=== PATIENT | male | born 1950 | race Caucasian/White ===

== ENCOUNTER 2017-04-13 07:26 | Day surgery (SDC) | payer BC ==
[2017-04-13] MEDS ORDERED: Dextrose 5%-Lactated Ringers 1,000 ML IV SCH (08:00)
[2017-04-13] MEDS ORDERED: Glycopyrrolate 0.2 MG/ML 2 ML SYRINGE IVPUSH ONE (09:00)
[2017-04-13] MEDS ORDERED: Propofol 200 MG/20 ML SDV ONE (10:15)
[2017-04-13] MEDS ORDERED: fentaNYL 100 MCG/2 ML SDV ONE (10:15)
[2017-04-13] MEDS ORDERED: Midazolam 1 MG/ML 2 ML SDV ONE (10:15)
[2017-04-13 11:41] VITALS: BP 150/84
--- NOTE | 2017-04-16 13:20 | OR ---
DATE OF PROCEDURE: 04/13/2017 PREOPERATIVE DIAGNOSIS: Probable gastroesophageal reflux disease. POSTOPERATIVE DIAGNOSES: 1. 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 2. Patchy antral gastritis and duodenitis. OPERATIVE PROCEDURES: 1. Esophagogastroduodenoscopy with:. a. Biopsies of antrum for CLOtest. b. Biopsies of esophagogastric junction for histologic evaluation. ANESTHESIA: IV sedation. INDICATION FOR PROCEDURE: A 66-year-old male presenting with some ongoing chest pain as well as some bilious regurgitation. He had a recent cardiac catheterization, which was normal, and the patient was felt at this time to most likely be having reflux-related discomfort. He in the past had been on Prilosec and did fine, and the symptoms improved at that time. He was started on Prilosec just yesterday, once again. The plan is to proceed with an upper GI endoscopy with biopsies and/or dilation as indicated. Potential risks including bleeding and perforation were discussed, and the patient wishes to proceed. DETAILS OF PROCEDURE: The patient was taken to the operating room and placed in a left lateral decubitus position. IV sedation was administered, after which the upper GI endoscope was passed orally through the length of the esophagus into the stomach with retroflexion view of the fundus, thereafter through the pyloric channel, and into the junction of the third and fourth portions of the duodenum. Findings include a normal hypopharynx, larynx, upper esophageal sphincter, and esophageal body. At the EG junction, there was a small hiatal hernia present. There were 3 upward extensions of the gastroesophageal junction mucosal line, all of which were acutely inflamed. One of these had a small area of ulceration at its tip. There were also some tiny islands of columnar-type mucosa slightly just above the main esophagogastric junction mucosal line as well. 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 No stricturing or plaquing or gross evidence of neoplasia was seen. Within the stomach, retroflexion revealed the small hiatal hernia. The remainder of the stomach had some patchy red spots in the antrum, these continued into the duodenal wall, after which the duodenal findings then normalized. At this point, biopsies were obtained from the antrum and sent for CLOtest for H. pylori. Multiple biopsies were obtained from esophagogastric junction and sent for histologic evaluation. Minimal bleeding from the biopsy sites was seen, and the procedure then concluded. The patient was taken to the recovery room in a satisfactory condition. The plan will be to have the patient continue the omeprazole 20 mg a day, as this regularly has been somewhat efficacious in the past. We will see the patient back on 04/25/2017, to see how we are doing with medical management. Elliott Zapata MD /[id number]
== END 2017-04-13 11:45 | disposition home or self-care (01) ==
LOC: JP.SDS 07:26
PROVIDERS: ATTEND Surgery
DX: K31.89 Other diseases of stomach and duodenum (principal); K44.9 Diaphragmatic hernia without obstruction or gangrene; I25.10 Atherosclerotic heart disease of native coronary artery without angina pectoris; K21.9 Gastro-esophageal reflux disease without esophagitis; E66.9 Obesity, unspecified; Z88.8 Allergy status to other drugs, medicaments and biological substances
CPT/HCPCS: 43239; 87081; J2250; J2704; J3010; J7042; 88305

== ENCOUNTER 2017-09-13 06:28 | Day surgery (SDC) | payer BC, MEDICARE ==
[2017-09-13] MEDS ORDERED: Sodium Tetradecyl Sulfate 1% 20 MG/2 ML SDV ONE (06:53)
[2017-09-13] MEDS ORDERED: Lidocaine 1% with EPINEPHrine 1:100,000 50 ML MDV ONE (06:53)
[2017-09-13] MEDS ORDERED: Sodium Chloride 0.9% 10 ML ONE (06:53)
[2017-09-13] MEDS ORDERED: Sodium Chloride 0.9% 1,000 ML IV SCH (07:00)
[2017-09-13] MEDS ORDERED: Lidocaine 1% w/EPINEPHrine 50 ML, Sodium Bicarbonate 5 MEQ in Sodium Chloride 0.9% 950 ML INJECT ONE (07:30)
[2017-09-13] MEDS ORDERED: Midazolam 1 MG/ML 2 ML SDV ONE (07:33)
[2017-09-13] MEDS ORDERED: fentaNYL 250 MCG/5 ML SDV ONE (07:33)
[2017-09-13] MEDS ORDERED: Propofol 200 MG/20 ML SDV ONE (07:33)
--- NOTE | 2017-09-13 10:14 | OR ---
DATE OF PROCEDURE: 09/13/2017 PROCEDURE: 1. Radiofrequency ablation of left greater saphenous vein. 2. Sclerotherapy left leg, multiple. 3. Compression wrapping, left leg ([id number]). PREOPERATIVE DIAGNOSIS: Venous/varicose vein insufficiency with inflammation and pain. POSTOPERATIVE DIAGNOSIS: Venous/varicose vein insufficiency with inflammation and pain. RISKS: Risks, benefits, alternatives, limitations including, but not limited to infection, bleeding, ulceration, and DVT formation were explained to the patient who wished to proceed. PROCEDURE IN DETAIL: The patient was placed in supine position. The left GSV was accessed at the level between the calf and ankle. This was accessed using a 21-gauge needle exchanged for a 35,000th wire, then exchanged for a 7-Belizean sheath. Tumescent fluid of lidocaine with epinephrine was used to anesthetize the area prior to incision with an 11 blade. The sheath was introduced and the RFA probe was advanced to approximately 5 cm from the deep junction. Due to the tortuosity, this was not able to be advanced any further. Tumescent fluid was used in a 1 cm jacket around this and then verified a second and third time. The RFA probe was deployed x2, proximally and distally and x1 in all other segments. Direct even pressure was performed during this maneuver. Sheath and devices were then removed. Direct pressure was held for 7 minutes. Dermabond was applied. Sclerotherapy was then performed on the left leg. There were 5 on the left, ranging in from 1-3 cm. 0.33% sodium tetradecyl was used and always drawn back to ensure intravascular injection only. Once this was completed, a 2-layer, 2-stage compression wrapping with a 30-mm gradient proximal to the distal was applied in a [id number] fashion. The patient tolerated the procedure well. Christiano Garcia MD /[id number]
[2017-09-13 11:12] VITALS: BP 144/83
== END 2017-09-13 11:00 | disposition home or self-care (01) ==
LOC: JP.SDS 06:28
PROVIDERS: ATTEND Surgery
DX: I87.2 Venous insufficiency (chronic) (peripheral) (principal); I83.812 Varicose veins of left lower extremity with pain; I83.12 Varicose veins of left lower extremity with inflammation; I25.10 Atherosclerotic heart disease of native coronary artery without angina pectoris; E78.5 Hyperlipidemia, unspecified; Z95.5 Presence of coronary angioplasty implant and graft; Z98.52 Vasectomy status; Z79.82 Long term (current) use of aspirin; Z79.899 Other long term (current) drug therapy; Z88.8 Allergy status to other drugs, medicaments and biological substances; F17.210 Nicotine dependence, cigarettes, uncomplicated
CPT/HCPCS: 29581; 36471; 36475; J1642; J2250; J2704; J3010; J7040; J7050; J3490

== ENCOUNTER 2019-03-20 07:59 | Day surgery (SDC) | payer MEDICARE ==
[2019-03-20] MEDS ORDERED: Dextrose 5%-Lactated Ringers 1,000 ML IV SCH (08:30)
[2019-03-20] MEDS ORDERED: Propofol 200 MG/20 ML SDV ONE (09:05)
[2019-03-20] MEDS ORDERED: fentaNYL 100 MCG/2 ML SDV ONE (09:05)
[2019-03-20] MEDS ORDERED: Midazolam 1 MG/ML 2 ML SDV ONE (09:05)
[2019-03-20 14:02] VITALS: PULSE 56
[2019-03-20 14:08] VITALS: BP 124/78
--- NOTE | 2019-04-07 08:41 | OR ---
DATE OF PROCEDURE: 03/20/2019 SURGEON: Elliott Zapata MD PREOPERATIVE DIAGNOSIS: Indications for screening colonoscopy. POSTOPERATIVE DIAGNOSIS: Two small polyps in transverse colon (obliterated by cautery snare). OPERATIVE PROCEDURE: Flexible colonoscopy with polypectomy by snare technique x2 ([id number]). ANESTHESIA: IV sedation. INDICATION FOR PROCEDURE: The patient presents for a followup colonoscopy. The plan is proceed with colonoscopy with biopsies and/or polypectomy as indicated. Potential risks including bleeding and perforation were discussed, and the patient wishes to proceed. DETAILS OF PROCEDURE: The patient was taken to the operating room and placed in a left lateral decubitus position. IV sedation was administered, after which the initial digital rectal exam was performed and it was unremarkable. Colonoscope was then passed to the level of the rectum with retroflexion revealing uncomplicated hemorrhoidal columns. The scope was then passed to the level of the cecum. The prep was fairly good with only a small amount of liquid stool present to that level. There were no diverticula and no areas of colitis. Two quite tiny polyps in the range of about 2 mm were noted at the mid transverse colon. Each of these was encircled at its base with a snare, and upon cauterization, they essentially became obliterated with no retrievable tissue being seen in the tissue trap. Other than that, no additional abnormalities were noted. Hemostasis was felt to be adequate at the polypectomy site and the procedure was then concluded. The patient was taken to the recovery room in satisfactory condition. Given the findings, we would recommend a repeat colonoscopy in 5 years. Elliott Zapata MD /[id number]
== END 2019-03-20 13:15 | disposition home or self-care (01) ==
LOC: JP.SDS 07:59
PROVIDERS: ATTEND Surgery
DX: Z12.11 Encounter for screening for malignant neoplasm of colon (principal); K63.5 Polyp of colon; K64.9 Unspecified hemorrhoids; I25.10 Atherosclerotic heart disease of native coronary artery without angina pectoris; I10 Essential (primary) hypertension; K21.9 Gastro-esophageal reflux disease without esophagitis; F17.200 Nicotine dependence, unspecified, uncomplicated; Z88.8 Allergy status to other drugs, medicaments and biological substances; Z79.82 Long term (current) use of aspirin; Z79.899 Other long term (current) drug therapy
CPT/HCPCS: 45385; J2250; J2704; J3010; J7042

== ENCOUNTER 2019-05-19 17:08 | Emergency (ER) | payer MEDICARE ==
[2019-05-19 17:21] VITALS: BP 162/84; PULSE 70
--- NOTE | 2019-05-19 17:42 | EDM.PDOC ---
ED HPI GENERAL MEDICAL PROBLEM - General Chief Complaint: Genitourinary Problem Stated Complaint: BLOOD IN URINE SENT [facility] Time Seen by Provider: 05/19/19 17:34 Source of Information: Reports: Patient, Provider History Limitations: Reports: No Limitations - History of Present Illness INITIAL COMMENTS - FREE TEXT/NARRATIVE: Alert very pleasant 69 yo male present to ER with for evaluation of progressive hematuria over the course of the last 3 days. Patient has a history of DVT right leg 3 years ago an did well on Coumadin x 6 months without concerns or abnormal bleeding. Patient had a deep ache in his right leg which started about 3 weeks ago. Patient had an US which was initially read as negative but over read noted right groin blood clot. Patient was started on XARELTO 15 mg BID x 21 days ago. Hematuria started three days ago urine was slightly darker than usual with progressive worsened over the course of the last three day and now laura red blood the last 12-24 hours. Patient skipped Xarelto dose last night but took dose this am. Patient denies any other abnormal bleeding, Headache, Chest pain, SOB or GI concerns. Patient has noted discomfort in bilateral flank over the last the 2-3 days which is intermittent. Patient is otherwise healthy with no history of cancer or renal concerns. Patient had continued normal activity setting up for garage sale, cover 3 days garage sale and dug out a culvert this am due to nightmute blocked over nights. Provider from [facility] called ER regarding ercent DVT and laura red blood hematuria which dropped Hgb 2 points over 3 weeks. Bilateral Flank Pain Score (Numeric/FACES): 1 - Related Data Allergies Allergy/AdvReac Type Severity Reaction Status Date / Time simvastatin Allergy Rash Verified 03/20/19 08:39 Home Meds: Home Meds Aspirin 325 mg PO BEDTIME 11/24/16 [History] Metoprolol Succinate [Toprol XL] 50 mg PO BEDTIME 11/24/16 [History] Rosuvastatin [Crestor] 20 mg PO BEDTIME 11/24/16 [History] Nitroglycerin [Nitrostat] 0.4 mg SL .Q5MIN PRN 04/12/17 [History] Varenicline Tartrate [Chantix] 1 tab PO BID 03/18/19 [History] Rivaroxaban [Xarelto] 20 mg PO DAILY 05/19/19 [History] Warfarin [Coumadin] 5 mg PO DAILY 10 Days #10 tab 05/19/19 [Rx] Past Medical History HEENT History: Reports: Impaired Vision Cardiovascular History: Reports: CAD, High Cholesterol, Hypertension, [place], Stents Respiratory History: Reports: None Gastrointestinal History: Reports: Colon Polyp, Gastritis, GERD, PUD Genitourinary History: Reports: None Musculoskeletal History: Reports: Other (See Below) Other Musculoskeletal History: left hand finger fracture Neurological History: Reports: None Psychiatric History: Reports: None Endocrine/Metabolic History: Reports: None Hematologic History: Reports: None Immunologic History: Reports: None Oncologic (Cancer) History: Reports: None Dermatologic History: Reports: Psoriasis - Infectious Disease History Infectious Disease History: Reports: Chicken Pox, Measles, Mumps - Past Surgical History Head Surgeries/Procedures: Reports: None HEENT Surgical History: Reports: Tonsillectomy Cardiovascular Surgical History: Reports: Coronary Artery Stent, Percutaneous Transluminal Angioplasty, Vascular Surgery Respiratory Surgical History: Reports: None GI Surgical History: Reports: Colonoscopy, EGD, Polypectomy Endocrine Surgical History: Reports: None Neurological Surgical History: Reports: None Oncologic Surgical History: Reports: None Dermatological Surgical History: Reports: None Social & Family History - Family History Family Medical History: Noncontributory - Tobacco Use Smoking Status *Q: Current Every Day Smoker Years of Tobacco use: 40 Packs/Tins Daily: 1 - Caffeine Use Caffeine Use: Reports: Coffee, Soda - Alcohol Use Days Per Week of Alcohol Use: 7 Number of Drinks Per Day: 2 Total Drinks Per Week: 14 - Recreational Drug Use Recreational Drug Use: No ED ROS GENERAL - Review of Systems Review Of Systems: ROS reveals no pertinent complaints other than HPI. ED EXAM, RENAL/ - Physical Exam Exam: See Below Exam Limited By: No Limitations General Appearance: Alert, WD/WN, No Apparent Distress Eye Exam: Bilateral Eye: EOMI, PERRL Ears: Normal External Exam, Normal Canal, Hearing Grossly Normal, Normal TMs Nose: Normal Inspection, Normal Mucosa, No Blood Throat/Mouth: Normal Inspection, Normal Lips, Normal Teeth, Normal Gums, Normal Oropharynx, Normal Voice, No Airway Compromise Head: Normocephalic Neck: Normal Inspection, Supple, Non-Tender, Full Range of Motion Respiratory/Chest: No Respiratory Distress, Lungs Clear, Normal Breath Sounds, No Accessory Muscle Use, Chest Non-Tender Cardiovascular: Normal Peripheral Pulses, Regular Rate, Rhythm, No Edema, No Gallop, No JVD, No Murmur, No Rub GI/Abdominal: Normal Bowel Sounds, Soft, Non-Tender, No Organomegaly, No Distention, No Abnormal Bruit, No Mass (Male) Exam: Deferred Rectal (Males) Exam: Deferred Back Exam: Normal Inspection, Full Range of Motion. No: CVA Tenderness (R), CVA Tenderness (L) (pain to palpation bilateral latissimus muscles mid/lower flank ) Extremities: Normal Inspection, Normal Range of Motion, Non-Tender, No Pedal Edema, Normal Capillary Refill, Other (prominent varicose veins left leg ( prevsious stripping x 2). No significant edema or pain right lower leg) Neurological: Alert, Oriented, CN II-XII Intact, Normal Cognition, Normal Gait, Normal Reflexes, No Motor/Sensory Deficits Psychiatric: Normal Affect, Normal Mood Skin Exam: Warm, Dry, Intact, Normal Color, No Rash Course - Vital Signs Last Recorded V/S: Last Vital Signs Temp 36.1 C 05/19/19 17:20 Pulse 70 05/19/19 17:20 Resp 18 05/19/19 17:20 BP 162/84 H 05/19/19 17:20 Pulse Ox 96 05/19/19 17:20 - Orders/Labs/Meds Orders: Active Orders 24 hr Category Date Time Status Peripheral IV Care [RC] . DIRECTED Care 05/19/19 17:32 Active CULTURE URINE [RM] Stat Lab 05/19/19 19:38 Ordered Iopamidol [Isovue-300 (61%)] Med 05/19/19 18:30 Active 136 ml IV . DIRECTED Sodium Chloride 0.9% [Normal Saline] 80 ml Med 05/19/19 18:30 Active IV ASDIRECTED Sodium Chloride 0.9% [Saline Flush] Med 05/19/19 17:31 Active 10 ml FLUSH ASDIRECTED PRN Peripheral IV Insertion Adult [OM.PC] Urgent Oth 05/19/19 17:29 Ordered Medication Orders Sodium Chloride (Normal Saline) 80 mls @ 3 mls/sec IV ASDIRECTED PRETTY Last Admin: 05/19/19 18:27 Dose: 3 mls/sec Iopamidol (Isovue-300 (61%)) 136 ml IV . DIRECTED PRETTY Last Admin: 05/19/19 18:27 Dose: 136 ml Sodium Chloride (Saline Flush) 10 ml FLUSH ASDIRECTED PRN PRN Reason: Keep Vein Open Last Admin: 05/19/19 18:26 Dose: 10 ml Admin: 05/19/19 17:43 Dose: 10 ml Labs: Laboratory Tests 05/19/19 05/19/19 05/19/19 Range/Units 17:44 17:44 17:44 WBC 7.5 (4.5-11.0) K/uL RBC 3.53 L (4.30-5.90) M/uL Hgb 12.3 (12.0-15.0) g/dL Hct 37.7 L (40.0-54.0) % MCV 107 H (80-98) fL MCH 35 H (27-31) pg MCHC 33 (32-36) % Plt Count 224 (150-400) K/uL Neut % (Auto) 58 (36-66) % Lymph % (Auto) 25 (24-44) % Hyde % (Auto) 13 H (2-6) % Eos % (Auto) 3 (2-4) % Baso % (Auto) 0 (0-1) % PT (9.5-12.0) sec INR (0.80-1.20) Sodium 141 (140-148) mmol/L Potassium 4.1 (3.6-5.2) mmol/L Chloride 107 (100-108) mmol/L Carbon Dioxide 25 (21-32) mmol/L Anion Gap 8.7 (5.0-14.0) mmol/L BUN 18 (7-18) mg/dL Creatinine 0.9 (0.8-1.3) mg/dL Est Cr Clr Drug Dosing 78.56 mL/min Estimated GFR (MDRD) > 60 (>60) Glucose 90 (74-106) mg/dL Calcium 8.8 (8.5-10.1) mg/dL Total Bilirubin 0.4 (0.2-1.0) mg/dL AST 25 (15-37) U/L ALT 27 (12-78) U/L Alkaline Phosphatase 81 (46-116) U/L Total Protein 7.1 (6.4-8.2) g/dL Albumin 3.5 (3.4-5.0) g/dL Globulin 3.6 H (2.3-3.5) g/dL Albumin/Globulin Ratio 1.0 L (1.2-2.2) Lipase 186 (73-393) U/L Urine Color (YELLOW) Urine Appearance (CLEAR) Urine pH (5.0-8.0) Ur Specific Shiner (1.008-1.030) Urine Protein (NEGATIVE) mg/dL Urine Glucose (UA) (NEGATIVE) mg/dL Urine Ketones (NEGATIVE) mg/dL Urine Occult Blood (NEGATIVE) Urine Nitrite (NEGATIVE) Urine Bilirubin (NEGATIVE) Urine Urobilinogen (0.2-1.0) EU/dL Ur Leukocyte Esterase (NEGATIVE) Urine RBC (0-5) Urine WBC (0-5) Ur Epithelial Cells Amorphous Sediment Urine Bacteria Urine Mucus 05/19/19 05/19/19 Range/Units 17:44 19:11 WBC (4.5-11.0) K/uL RBC (4.30-5.90) M/uL Hgb (12.0-15.0) g/dL Hct (40.0-54.0) % MCV (80-98) fL MCH (27-31) pg MCHC (32-36) % Plt Count (150-400) K/uL Neut % (Auto) (36-66) % Lymph % (Auto) (24-44) % Hyde % (Auto) (2-6) % Eos % (Auto) (2-4) % Baso % (Auto) (0-1) % PT 11.6 (9.5-12.0) sec INR 1.08 (0.80-1.20) Sodium (140-148) mmol/L Potassium (3.6-5.2) mmol/L Chloride (100-108) mmol/L Carbon Dioxide (21-32) mmol/L Anion Gap (5.0-14.0) mmol/L BUN (7-18) mg/dL Creatinine (0.8-1.3) mg/dL Est Cr Clr Drug Dosing mL/min Estimated GFR (MDRD) (>60) Glucose (74-106) mg/dL Calcium (8.5-10.1) mg/dL Total Bilirubin (0.2-1.0) mg/dL AST (15-37) U/L ALT (12-78) U/L Alkaline Phosphatase (46-116) U/L Total Protein (6.4-8.2) g/dL Albumin (3.4-5.0) g/dL Globulin (2.3-3.5) g/dL Albumin/Globulin Ratio (1.2-2.2) Lipase (73-393) U/L Urine Color Red A (YELLOW) Urine Appearance Turbid A (CLEAR) Urine pH 7.0 (5.0-8.0) Ur Specific Shiner 1.025 (1.008-1.030) Urine Protein 100 H (NEGATIVE) mg/dL Urine Glucose (UA) Normal (NEGATIVE) mg/dL Urine Ketones Negative (NEGATIVE) mg/dL Urine Occult Blood Large H (NEGATIVE) Urine Nitrite Negative (NEGATIVE) Urine Bilirubin Negative (NEGATIVE) Urine Urobilinogen 0.2 (0.2-1.0) EU/dL Ur Leukocyte Esterase Negative (NEGATIVE) Urine RBC Packed H (0-5) Urine WBC 0-5 (0-5) Ur Epithelial Cells Rare Amorphous Sediment Not seen Urine Bacteria Not seen Urine Mucus Not seen Meds: Medications Generic Name Dose Route Start Last Admin Trade Name Freq PRN Reason Stop Dose Admin Sodium Chloride 80 mls @ 3 mls/sec 05/19/19 18:30 05/19/19 18:27 Normal Saline IV 3 mls/sec ASDIRECTED PRETTY Administration Iopamidol 136 ml 05/19/19 18:30 05/19/19 18:27 Isovue-300 (61%) IV 136 ml . DIRECTED PRETTY Administration Sodium Chloride 10 ml 05/19/19 17:31 05/19/19 18:26 Saline Flush FLUSH 10 ml ASDIRECTED PRN Administration Keep Vein Open - Radiology Interpretation Free Text/Narrative:: CT Abd/Pelvis w and w/o Contrast (Hematuria/Renal Protocol): Reading per Consulting Radiologists Impression: 1. There is a 5 mm module partially visualized within the right lower lobe (lung ) on image 1, series 5. Follow-up outpatient CT Chest recommended. 2. There is thickening and enhancement of the bilateral renal pelvis and proximal ureteral urothelium seen. Correlation with urinalysis recommended to excule infectious pyelitis. 3. Moderate to severe diffuse bladder wall thickening is noted. This may be due to chronic bladder outlet obstruction, urinary tract infection or cystitis. 4. Moderate enlargement of the prostate gland is noted and impressing upon the base of the bladder. Correlation with physical examination and PSA levels are recommended. Discussed results with patient and during visit. - Re-Assessments/Exams Free Text/Narrative Re-Assessment/Exam: IV access obtained. Baseline blood work drawn. CT Hematuria renal protocol ordered CT Abd/Pelvis with and without contrast ordered. 05/19/19 18:10 Free Text/Narrative Re-Assessment/Exam: Significant hematuria noted on Urine Sample. Pending CT Abd and Pelvic hematuria renal protocol. 05/19/19 19:[address] and laboratory results with and patient. Shared decision making regarding further treatment with No DOC, continue Xarelto vs transition to Coumadin without or without bridge with Levenox. Urine Culture ordered for further evaluation. Recommended referral to Urology regarding CT changes supporting urinary outflow obstruction confirmed by patient history of difficulty voiding or emptying bladder completely due to enlarge prostate. 05/19/19 19:48 Patient a choose bridging from Xarelto to Coumadin at this time without Lovenox bridging. Reference about switching referenced and discuss with patient and . To switch to warfarin: rivaroxaban increases INR, thus confounding initial warfarin dosing. U.S.: consider starting a parenteral anticoagulant plus warfarin when the next dose of rivaroxaban would have been due. Luma: continue rivaroxaban with warfarin until the INR is >2. Use the usual initial warfarin dose for the first two days. Thereafter, check INR just prior to the next dose of rivaroxaban to minimize rivaroxaban interference with the INR. Patient will be given first dose of Coumadin before discharge. Coumadin to be taken daily around 4-6 pm. Continue Xarelto 20mg every am. Take Xarelto on Sunday am and schedule INR testing on Sunday morning. If INR >2 discontinued dose of Xarelto but return to clinic on am for repeat INR testing to ensure INR remains therapeutic. 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 05/19/19 20:16 Departure - Departure Time of Disposition: 20:25 Disposition: Home, Self-Care 01 Clinical Impression: Hematuria syndrome - Discharge Information Prescriptions: Warfarin [Coumadin] 5 mg PO DAILY 10 Days #10 tab Instructions: Hematuria, Adult, Acute Urinary Retention, Male, Deep Vein Thrombosis, What You Need to Know About Warfarin Referrals: Ofelia Frye MD [Primary Care Provider] - Forms: ED Department Discharge Additional Instructions: Reference about switching referenced and discuss with patient and . To switch to warfarin: rivaroxaban increases INR, thus confounding initial warfarin dosing. [place].: consider starting a parenteral anticoagulant plus warfarin when the next dose of rivaroxaban would have been due. Luma: continue rivaroxaban with warfarin until the INR is >2. Use the usual initial warfarin dose for the first two days. Thereafter, check INR just prior to the next dose of rivaroxaban to minimize rivaroxaban interference with the INR. Patient will be given first dose of Coumadin 5 mg before discharge this evening. Coumadin 5 mg to be taken daily around 4-6 pm. Continue Xarelto 20mg every am. Take Xarelto on Sunday am and schedule INR testing on Sunday. If INR >2 discontinued dose of Xarelto but return to clinic on am for repeat INR testing to ensure INR remains therapeutic. 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 - Problem List & Annotations (1) DVT (deep venous thrombosis) SNOMED Code(s): 953470400 Code(s): I82.409 - ACUTE EMBOLISM AND THOMBOS UNSP DEEP VN UNSP LOWER EXTREMITY Status: Acute Current Visit: Yes (2) Hematuria syndrome SNOMED Code(s): 91944495 Code(s): R31.9 - HEMATURIA, UNSPECIFIED Status: Acute Current Visit: Yes - My Orders Last 24 Hours: My Active Orders 05/19/19 17:29 Peripheral IV Insertion Adult [OM.PC] Urgent 05/19/19 17:31 Sodium Chloride 0.9% [Saline Flush] 10 ml FLUSH ASDIRECTED PRN 05/19/19 17:32 Peripheral IV Care [RC] . DIRECTED 05/19/19 18:30 Iopamidol [Isovue-300 (61%)] 136 ml IV . DIRECTED Sodium Chloride 0.9% [Normal Saline] 80 ml IV ASDIRECTED 05/19/19 19:38 CULTURE URINE [RM] Stat - Assessment/Plan Last 24 Hours: My Active Orders 05/19/19 17:29 Peripheral IV Insertion Adult [OM.PC] Urgent 05/19/19 17:31 Sodium Chloride 0.9% [Saline Flush] 10 ml FLUSH ASDIRECTED PRN 05/19/19 17:32 Peripheral IV Care [RC] . DIRECTED 05/19/19 18:30 Iopamidol [Isovue-300 (61%)] 136 ml IV . DIRECTED Sodium Chloride 0.9% [Normal Saline] 80 ml IV ASDIRECTED 05/19/19 19:38 CULTURE URINE [] Stat
[2019-05-19] MEDS: Sodium Chloride 0.9% 10 ML Syringe FLUSH PRN ×2 (17:43→18:26)
[2019-05-19] MEDS ORDERED: Sodium Chloride 0.9% 80 ML IV SCH (18:30)
[2019-05-19] MEDS ORDERED: Iopamidol 612 MG/ML 150 ML Bottle IV SCH (18:30)
--- NOTE | 2019-05-19 19:32 | CRLCT ---
INDICATION: Hematuria TECHNIQUE: CT Abdomen and pelvis urogram with and without i.v. contrast. Post-contrast images were obtained in the nephrographic and delayed phases. Coronal and sagittal reformats were obtained. CONTRAST: 136 mL Isovue 300 COMPARISON: None FINDINGS: Lower chest: There is a 5 mm nodule partially visualized within the right lower lobe on image 1, series 5. Liver: Small cysts are present in the left lobe of the liver measuring up to 1.1 cm. Spleen: Unremarkable. Pancreas: Unremarkable. Gallbladder: Unremarkable. Kidney: There is a 4 mm stone in the upper pole of the left kidney and a 1 mm stone seen in the left renal midzone. There is thickening and enhancement of the bilateral renal pelvis and proximal ureteral urothelium seen. Adrenal: Unremarkable. Bowel: Unremarkable. The appendix is normal in appearance and size. Vascular: Moderate diffuse atherosclerotic calcifications of the abdominal aorta and its tributaries are present. Lymph: Unremarkable. Peritoneum: Unremarkable. No pneumoperitoneum is seen. No significant ascites is noted. Pelvis: Moderate enlargement of the prostate gland is noted and impressing upon the base of the bladder. Moderate to severe diffuse bladder wall thickening is noted. Soft tissue: Unremarkable. Bone: Unremarkable for age. IMPRESSIONS: 1. There is a 5 mm nodule partially visualized within the right lower lobe on image 1, series 5. follow-up outpatient chest CT recommended. 2. There is thickening and enhancement of the bilateral renal pelvis and proximal ureteral urothelium seen. Correlation with urinalysis recommended to exclude infectious pyelitis. 3. Moderate to severe diffuse bladder wall thickening is noted. This may be due to chronic bladder outlet obstruction,urinary tract infection or cystitis. 4. Moderate enlargement of the prostate gland is noted and impressing upon the base of the bladder. Correlation with physical examination and PSA levels are recommended. Dictated by Scotty Bryson MD @ 05/19/2019 7:29:25 PM Please note that all CT scans at this facility use dose modulation, iterative reconstruction, and/or weight-based dosing when appropriate to reduce radiation dose to as low as reasonably achievable. Dictated by: Scotty Bryson MD @ 05/19/2019 19:30:05 (Electronically Signed)
[2019-05-19] MEDS ORDERED: Warfarin 5 MG Tab PO ONE (20:15)
== END 2019-05-19 20:52 | disposition home or self-care (01) ==
LOC: JP.ED 17:08
DX: R31.9 Hematuria, unspecified (principal); I10 Essential (primary) hypertension; E78.00 Pure hypercholesterolemia, unspecified; F17.210 Nicotine dependence, cigarettes, uncomplicated; Z86.718 Personal history of other venous thrombosis and embolism; Z79.01 Long term (current) use of anticoagulants; Z79.82 Long term (current) use of aspirin; Z79.899 Other long term (current) drug therapy; Z88.8 Allergy status to other drugs, medicaments and biological substances
CPT/HCPCS: 36415; 74178; 80053; 81001; 83690; 85025; 85610; 87086; 99283; A9270; J7030

== ENCOUNTER 2020-08-07 18:00 | Emergency (ER) | payer MEDICARE ==
[2020-08-07] MEDS ORDERED: Oxymetazoline 0.05% Nasal Spray 30 ML Bottle ONE (18:19)
[2020-08-07] MEDS ORDERED: Silver Nitrate Applicator Each ONE (18:28)
--- NOTE | 2020-08-07 18:59 | EDM.PDOC ---
ED HPI GENERAL MEDICAL PROBLEM - General Chief Complaint: ENT Problem Stated Complaint: BLOODY NOSE Time Seen by Provider: 08/07/20 18:20 Source of Information: Reports: Patient, Family, Old Records, RN Notes Reviewed History Limitations: Reports: No Limitations - History of Present Illness Onset: Today, Sudden Duration: Constant Location: Reports: Head, Other (nose) Severity: Moderate Improves with: Reports: None Worsens with: Reports: None Context: Reports: Activity Associated Symptoms: Reports: No Other Symptoms Treatments TOURIST ADVISER: Reports: Other (see below) (Pinched nose) - Related Data Allergies Allergy/AdvReac Type Severity Reaction Status Date / Time simvastatin Allergy Rash Verified 08/08/20 01:31 Home Meds: Home Meds Metoprolol Succinate [Toprol XL] 50 mg PO BEDTIME 11/24/16 [History] Rosuvastatin [Crestor] 20 mg PO BEDTIME 11/24/16 [History] Nitroglycerin [Nitrostat] 0.4 mg SL .Q5MIN PRN 04/12/17 [History] Warfarin [Coumadin] 5 mg PO DAILY 10 Days #10 tab 05/19/19 [Rx] Past Medical History HEENT History: Reports: Impaired Vision Cardiovascular History: Reports: CAD, High Cholesterol, Hypertension, [place], Stents Respiratory History: Reports: None Gastrointestinal History: Reports: Colon Polyp, Gastritis, GERD, PUD Genitourinary History: Reports: None Musculoskeletal History: Reports: Other (See Below) Other Musculoskeletal History: left hand finger fracture Neurological History: Reports: None Psychiatric History: Reports: None Endocrine/Metabolic History: Reports: None Hematologic History: Reports: None Immunologic History: Reports: None Oncologic (Cancer) History: Reports: None Dermatologic History: Reports: Psoriasis - Infectious Disease History Infectious Disease History: Reports: Chicken Pox, Measles, Mumps - Past Surgical History Head Surgeries/Procedures: Reports: None HEENT Surgical History: Reports: Tonsillectomy Cardiovascular Surgical History: Reports: Coronary Artery Stent, Percutaneous Transluminal Angioplasty, Vascular Surgery Respiratory Surgical History: Reports: None GI Surgical History: Reports: Colonoscopy, EGD, Polypectomy Endocrine Surgical History: Reports: None Neurological Surgical History: Reports: None Oncologic Surgical History: Reports: None Dermatological Surgical History: Reports: None Social & Family History - Family History Family Medical History: Noncontributory - Tobacco Use Tobacco Use Status *Q: Current Every Day Tobacco User Years of Tobacco use: 40 Packs/Tins Daily: 1 - Caffeine Use Caffeine Use: Reports: Coffee, Soda ED ROS ENT - Review of Systems Review Of Systems: See Below Constitutional: Reports: No Symptoms Respiratory: Reports: No Symptoms Cardiovascular: Reports: No Symptoms ED EXAM, ENT - Physical Exam Exam: See Below Exam Limited By: No Limitations General Appearance: Alert, WD/WN, Anxious Eye Exam: Bilateral Eye: PERRL Ears: Normal External Exam Nose: Active Bleeding, Other (Blows his nose up large clots. No real active bleeding except for a tiny spot in the anterior triangle noted on the left. He has active bleeding from the triangle on the right. He does have blood in the pharynx oropharynx as well) Mouth/Throat: Normal Inspection, Other (For blood in the oropharynx drainage from his nose) Head: Atraumatic, Normocephalic Neck: Normal Inspection Respiratory/Chest: No Respiratory Distress Cardiovascular: Normal Peripheral Pulses, Regular Rate, Rhythm GI/Abdominal: Soft, Non-Tender Extremities: Normal Inspection Neurological: Alert, Oriented, Normal Cognition, No Motor/Sensory Deficits Psychiatric: Normal Affect Skin: Normal Color, No Rash Course - Vital Signs Text/Narrative:: Patient was on the ENT chair and elevated to eye level. Nasal suction is used to visualize the nares showing the bleeding on the right side with minimal on the left. With assistance of the nurse, Afrin cotton balls were soaked and placed in both nares. The left side nearly stops and is a tiny bleeding spot that is cauterized with silver nitrate successfully. Are made at silver nitrate with the bleeding on the right followed by reapplication of another Afrin soaked cotton ball. Another effort at silver nitrate is not successful and therefore a tampon is inserted and blown up with a air. Oropharynx is inspected after gargling and no further bleeding is noted. 1:29 PM and I have reexamined the patient no further bleeding from the left nares. Pressure was reduced and the balloon on the right and he has no further bleeding in his oropharynx is clear. Family is to leave the nasal tampon in place and have him follow-up either with ENT here in the office or with his provider and walker in about 2 days. Last Recorded V/S: Last Vital Signs Temp 36.5 C 08/07/20 20:00 Pulse 72 08/07/20 20:00 Resp 14 08/07/20 20:00 BP 148/84 H 08/07/20 20:00 Pulse Ox 98 08/07/20 20:00 - Orders/Labs/Meds Meds: Medications Discontinued Medications Generic Name Dose Route Start Last Admin Trade Name Ricki PRN Reason Stop Dose Admin Oxymetazoline HCl Confirm 08/07/20 18:19 Nasal Decongestant Luckey Administered 08/07/20 18:20 Dose 30 ml .ROUTE .STK-MED ONE Oxymetazoline HCl 30 ml 08/07/20 20:16 08/07/20 20:18 Nasal Decongestant Luckey MELANIE 08/07/20 20:17 30 ml ONETIME ONE Administration Silver Nitrate Confirm 08/07/20 18:28 Silver Nitrate Administered 08/07/20 18:29 Dose 1 each .ROUTE .STK-MED ONE Silver Nitrate 1 each 08/07/20 20:17 08/07/20 20:18 Silver Nitrate TOP 08/07/20 20:18 1 each ONETIME ONE Administration Departure - Departure Time of Disposition: 19:37 Disposition: Home, Self-Care 01 Condition: Good Clinical Impression: Epistaxis - Discharge Information Instructions: Nosebleed, Adult Referrals: Ofelia Frye MD [Primary Care Provider] - Additional Instructions: Up with your ward clerk referable to the Coumadin Referral has been sent to ENT or you can see Ofelia Frye 2 days
[2020-08-07 20:02] VITALS: BP 148/84; PULSE 72
[2020-08-07] MEDS ORDERED: Oxymetazoline 0.05% Nasal Spray 30 ML Bottle NAS ONE (20:16)
[2020-08-07] MEDS ORDERED: Silver Nitrate Applicator Each TOP ONE (20:17)
== END 2020-08-07 20:03 | disposition home or self-care (01) ==
LOC: JP.ED 18:00
DX: R04.0 Epistaxis (principal); I10 Essential (primary) hypertension; E78.00 Pure hypercholesterolemia, unspecified; I25.10 Atherosclerotic heart disease of native coronary artery without angina pectoris; I25.2 Old myocardial infarction; Z95.5 Presence of coronary angioplasty implant and graft; F17.210 Nicotine dependence, cigarettes, uncomplicated; Z88.8 Allergy status to other drugs, medicaments and biological substances; Z79.01 Long term (current) use of anticoagulants; Z79.899 Other long term (current) drug therapy
CPT/HCPCS: 30901; 99283; A9270

== ENCOUNTER 2020-08-07 22:30 | Emergency (ER) | payer MEDICARE ==
--- NOTE | 2020-08-07 22:46 | EDM.PDOC ---
ED HPI GENERAL MEDICAL PROBLEM - General Chief Complaint: ENT Problem Stated Complaint: BLOODY NOSE Time Seen by Provider: 08/07/20 22:42 Source of Information: Reports: Patient History Limitations: Reports: No Limitations - History of Present Illness INITIAL COMMENTS - FREE TEXT/NARRATIVE: 70-year-old male who was home for couple of hours after placement of a nasal tampon on the right side for nasal bleeding. He was cauterized on the left and then started bleeding just prior to coming back in. He is alert and cooperative and another nasal tampon 7.5 was inserted in the left nares follow-up in about 2 days to have the removed ENT to whom he was referred over earlier Onset: Today, Sudden Duration: Minutes:, Recurring Location: Reports: Other (Nose) Severity: Mild Associated Symptoms: Reports: No Other Symptoms - Related Data Allergies Allergy/AdvReac Type Severity Reaction Status Date / Time simvastatin Allergy Rash Verified 08/07/20 18:08 Home Meds: Home Meds Metoprolol Succinate [Toprol XL] 50 mg PO BEDTIME 11/24/16 [History] Rosuvastatin [Crestor] 20 mg PO BEDTIME 11/24/16 [History] Nitroglycerin [Nitrostat] 0.4 mg SL .Q5MIN PRN 04/12/17 [History] Warfarin [Coumadin] 5 mg PO DAILY 10 Days #10 tab 05/19/19 [Rx] Past Medical History HEENT History: Reports: Impaired Vision Cardiovascular History: Reports: CAD, High Cholesterol, Hypertension, [place], Stents Respiratory History: Reports: None Gastrointestinal History: Reports: Colon Polyp, Gastritis, GERD, PUD Genitourinary History: Reports: None Musculoskeletal History: Reports: Other (See Below) Other Musculoskeletal History: left hand finger fracture Neurological History: Reports: None Psychiatric History: Reports: None Endocrine/Metabolic History: Reports: None Hematologic History: Reports: None Immunologic History: Reports: None Oncologic (Cancer) History: Reports: None Dermatologic History: Reports: Psoriasis - Infectious Disease History Infectious Disease History: Reports: Chicken Pox, Measles, Mumps - Past Surgical History Head Surgeries/Procedures: Reports: None HEENT Surgical History: Reports: Tonsillectomy Cardiovascular Surgical History: Reports: Coronary Artery Stent, Percutaneous Transluminal Angioplasty, Vascular Surgery Respiratory Surgical History: Reports: None GI Surgical History: Reports: Colonoscopy, EGD, Polypectomy Endocrine Surgical History: Reports: None Neurological Surgical History: Reports: None Oncologic Surgical History: Reports: None Dermatological Surgical History: Reports: None Social & Family History - Family History Family Medical History: Noncontributory - Caffeine Use Caffeine Use: Reports: Coffee, Soda ED ROS ENT - Review of Systems Review Of Systems: See Below (Same as earlier visit of a few hours ago) ED EXAM, ENT - Physical Exam Exam: See Below Exam Limited By: No Limitations General Appearance: Alert, WD/WN, No Apparent Distress, Anxious Nose: Active Bleeding, Other (Patient has a nasal tampon in the right nares. 7.5 is placed on the left as he has recurrent and continued bleeding.) Head: Atraumatic, Normocephalic Neck: Normal Inspection (Was unchanged from earlier this evening) Course - Vital Signs Text/Narrative:: 0.5 nasal cannula soaked in water and inserted into the left nares and inflated to comfort. He will have that removed in about 2 days when the other one is removed as well. Departure - Departure Time of Disposition: 22:48 Disposition: Home, Self-Care 01 Clinical Impression: Epistaxis - Discharge Information Referrals: PCP,None [Primary Care Provider] -
== END 2020-08-07 23:05 | disposition home or self-care (01) ==
LOC: JP.ED 22:30
DX: R04.0 Epistaxis (principal); I25.10 Atherosclerotic heart disease of native coronary artery without angina pectoris; E78.00 Pure hypercholesterolemia, unspecified; I10 Essential (primary) hypertension; I25.2 Old myocardial infarction; Z95.5 Presence of coronary angioplasty implant and graft; Z88.8 Allergy status to other drugs, medicaments and biological substances; Z79.899 Other long term (current) drug therapy; Z79.01 Long term (current) use of anticoagulants
CPT/HCPCS: 30901; 99282; 99283

== ENCOUNTER 2020-08-08 01:26 | Emergency (ER) | payer MEDICARE ==
[2020-08-08] MEDS ORDERED: Silver Nitrate Applicator Each ONE (02:06)
--- NOTE | 2020-08-08 02:30 | EDM.PDOC ---
ED HPI GENERAL MEDICAL PROBLEM - General Chief Complaint: ENT Problem Stated Complaint: BLOODY NOSE Time Seen by Provider: 08/08/20 01:26 Source of Information: Reports: Patient, Family History Limitations: Reports: No Limitations - History of Present Illness INITIAL COMMENTS - FREE TEXT/NARRATIVE: 10-year-old male seen now for the third time in the last few hours with recurrent epistaxis. Patient called noting that he had a headache and he has bilateral nasal tampons. Noted blood in his pharynx as well. With ENT availability and revision there is not any. I advised him to come back in. On arrival he was feeling faint with continued headache but vital signs were okay. There he had bilateral nasal tampons placed one on each visit. Historically he did have a spontaneous nasal bleed on Sunday some 5 days ago and again on 3 days ago and now again today. On Coumadin as previously noted Onset: Today, Sudden Duration: Hour(s):, Recurring Location: Reports: Other (Nose) headache Pain Score (Numeric/FACES): 9 - Related Data Allergies Allergy/AdvReac Type Severity Reaction Status Date / Time simvastatin Allergy Rash Verified 08/08/20 01:31 Home Meds: Home Meds Metoprolol Succinate [Toprol XL] 50 mg PO BEDTIME 11/24/16 [History] Rosuvastatin [Crestor] 20 mg PO BEDTIME 11/24/16 [History] Nitroglycerin [Nitrostat] 0.4 mg SL .Q5MIN PRN 04/12/17 [History] Warfarin [Coumadin] 5 mg PO DAILY 10 Days #10 tab 05/19/19 [Rx] Past Medical History HEENT History: Reports: Impaired Vision Cardiovascular History: Reports: CAD, High Cholesterol, Hypertension, [place], Stents Respiratory History: Reports: None Gastrointestinal History: Reports: Colon Polyp, Gastritis, GERD, PUD Genitourinary History: Reports: None Musculoskeletal History: Reports: Other (See Below) Other Musculoskeletal History: left hand finger fracture Neurological History: Reports: None Psychiatric History: Reports: None Endocrine/Metabolic History: Reports: None Hematologic History: Reports: None Immunologic History: Reports: None Oncologic (Cancer) History: Reports: None Dermatologic History: Reports: Psoriasis - Infectious Disease History Infectious Disease History: Reports: Chicken Pox, Measles, Mumps - Past Surgical History Head Surgeries/Procedures: Reports: None HEENT Surgical History: Reports: Tonsillectomy Cardiovascular Surgical History: Reports: Coronary Artery Stent, Percutaneous Transluminal Angioplasty, Vascular Surgery Respiratory Surgical History: Reports: None GI Surgical History: Reports: Colonoscopy, EGD, Polypectomy Endocrine Surgical History: Reports: None Neurological Surgical History: Reports: None Oncologic Surgical History: Reports: None Dermatological Surgical History: Reports: None Social & Family History - Family History Family Medical History: Noncontributory - Tobacco Use Tobacco Use Status *Q: Current Every Day Tobacco User Years of Tobacco use: 40 Packs/Tins Daily: 1 - Caffeine Use Caffeine Use: Reports: Coffee - Alcohol Use Days Per Week of Alcohol Use: 7 Number of Drinks Per Day: 3 Total Drinks Per Week: 21 - Recreational Drug Use Recreational Drug Use: No ED ROS ENT - Review of Systems Review Of Systems: See Below Constitutional: Reports: No Symptoms HEENT: Reports: Nosebleed Respiratory: Reports: No Symptoms Cardiovascular: Reports: No Symptoms (Physical exam is unremarkable once he is into the room and undressed and begins to feel better. Slightly diaphoretic and pale initially but quickly resolves and normal vital signs noted) ED EXAM, ENT - Physical Exam Exam: See Below Exam Limited By: No Limitations General Appearance: Alert, WD/WN, Anxious Eye Exam: Bilateral Eye: EOMI, PERRL Ears: Normal External Exam Nose: Active Bleeding Mouth/Throat: Other (Noted in the oropharynx) Head: Atraumatic Neck: Normal Inspection Respiratory/Chest: No Respiratory Distress Cardiovascular: Normal Peripheral Pulses GI/Abdominal: Soft, Non-Tender Extremities: Normal Inspection Course - Vital Signs Text/Narrative:: On arrival patient is immediately undressed and noted to be somewhat pale but vital signs are okay. This patient of his arrival I have prepared transexamined acid to be available for intranasal aerosolization and cotton soaked pledgets. Noted to have some blood in the oropharynx. Both nasal tampons are removed and his headache goes away. Nares are inspected and he has some hyperemia around her previously cauterized area on the left nares without active bleeding and this is cauterized with silver nitrate. Nares does show the previously cauterized area but no active bleeding is noted at the moment. Transexamined acid is aerosolized into each nares followed by cotton soaked with transexamined acid and left in place for about 10 minutes while observing the patient who has no further oropharyngeal bleeding. Second slight dose of aerosolized transexamined acid is placed and the patient is now being observed. 40 5 AM and the patient has been sleeping. He has no further bleeding noted in his pharynx area. No bleeding noted in either nares either. Few drops more of transexamined as that are placed in the right nares. Patient will be observed for another hour or 2. is advised Globin 11.3 and INR is 1.73 5:48 AM when he is up walking about at this juncture and has had no further bleeding for the last couple of hours or so. My plan is to try to contact Dr. Rosenberg certainly by Sunday and arrange for follow-up for Mr. Tena and have him return in the interim if necessary. We elected not to put tampons back in now as the transexamined acid seems to be working Last Recorded V/S: Last Vital Signs Temp 35.8 C L 08/08/20 01:29 Pulse 87 08/08/20 04:29 Resp 13 08/08/20 04:29 BP 129/79 08/08/20 04:29 Pulse Ox 97 08/08/20 03:59 - Orders/Labs/Meds Labs: Laboratory Tests 08/08/20 08/08/20 08/08/20 Range/Units 01:44 01:44 01:44 WBC 13.5 H (4.5-11.0) K/uL RBC 4.14 L (4.30-5.90) M/uL Hgb 11.3 L (12.0-15.0) g/dL Hct 37.5 L (40.0-54.0) % MCV 91 (80-98) fL MCH 27 (27-31) pg MCHC 30 L (32-36) % Plt Count 221 (150-400) K/uL Neut % (Auto) 54 (36-66) % Lymph % (Auto) 32 (24-44) % Bollinger % (Auto) 12 H (2-6) % Eos % (Auto) 2 (2-4) % Baso % (Auto) 0 (0-1) % PT 18.7 H (9.5-12.0) sec INR 1.73 H (0.80-1.20) Sodium 141 (140-148) mmol/L Potassium 3.6 (3.6-5.2) mmol/L Chloride 102 (100-108) mmol/L Carbon Dioxide 23 (21-32) mmol/L Anion Gap 16.0 H (5.0-14.0) mmol/L BUN 32 H D (7-18) mg/dL Creatinine 1.1 (0.8-1.3) mg/dL Est Cr Clr Drug Dosing 63.38 mL/min Estimated GFR (MDRD) > 60 (>60) Glucose 133 H (74-106) mg/dL Calcium 8.7 (8.5-10.1) mg/dL Total Bilirubin 0.3 (0.2-1.0) mg/dL AST 34 (15-37) U/L ALT 30 (12-78) U/L Alkaline Phosphatase 67 (46-116) U/L Total Protein 7.1 (6.4-8.2) g/dL Albumin 3.4 (3.4-5.0) g/dL Globulin 3.7 H (2.3-3.5) g/dL Albumin/Globulin Ratio 0.9 L (1.2-2.2) Blood Type Gel Antibody Screen 08/08/20 Range/Units 02:04 WBC (4.5-11.0) K/uL RBC (4.30-5.90) M/uL Hgb (12.0-15.0) g/dL Hct (40.0-54.0) % MCV (80-98) fL MCH (27-31) pg MCHC (32-36) % Plt Count (150-400) K/uL Neut % (Auto) (36-66) % Lymph % (Auto) (24-44) % Bollinger % (Auto) (2-6) % Eos % (Auto) (2-4) % Baso % (Auto) (0-1) % PT (9.5-12.0) sec INR (0.80-1.20) Sodium (140-148) mmol/L Potassium (3.6-5.2) mmol/L Chloride (100-108) mmol/L Carbon Dioxide (21-32) mmol/L Anion Gap (5.0-14.0) mmol/L BUN (7-18) mg/dL Creatinine (0.8-1.3) mg/dL Est Cr Clr Drug Dosing mL/min Estimated GFR (MDRD) (>60) Glucose (74-106) mg/dL Calcium (8.5-10.1) mg/dL Total Bilirubin (0.2-1.0) mg/dL AST (15-37) U/L ALT (12-78) U/L Alkaline Phosphatase (46-116) U/L Total Protein (6.4-8.2) g/dL Albumin (3.4-5.0) g/dL Globulin (2.3-3.5) g/dL Albumin/Globulin Ratio (1.2-2.2) Blood Type O POSITIVE Gel Antibody Screen Negative Meds: Medications Discontinued Medications Generic Name Dose Route Start Last Admin Trade Name Freq PRN Reason Stop Dose Admin Silver Nitrate Confirm 08/08/20 02:06 08/08/20 03:27 Silver Nitrate Administered 08/08/20 02:07 Not Given Dose 1 each .ROUTE .STK-MED ONE Silver Nitrate 1 each 08/08/20 03:24 08/08/20 02:10 Silver Nitrate TOP 08/08/20 03:25 1 each ONETIME ONE Administration Tranexamic Acid 500 mg 08/08/20 02:30 Cyklokapron TOP 08/08/20 02:31 ONETIME ONE Tranexamic Acid 1,500 mg 08/08/20 03:23 08/08/20 02:00 Cyklokapron TOP 08/08/20 03:24 1,500 mg ONETIME ONE Administration Departure - Departure Time of Disposition: 06:08 Disposition: Home, Self-Care 01 Condition: Good Clinical Impression: Epistaxis, recurrent - Discharge Information Instructions: Nosebleed, Adult Referrals: Ofelia Frye MD [Primary Care Provider] - Forms: ED Department Discharge Additional Instructions: Turn if necessary because of recurrent bleeding. Otherwise I will try to have follow-up with Dr. Rosenberg in [place] on Sunday or Sunday Sepsis Event Note (ED) - Evaluation Sepsis Screening Result: No Definite Risk - Focused Exam Vital Signs: Vital Signs Temp Pulse Resp BP Pulse Ox 08/08/20 04:29 87 13 129/79 08/08/20 03:59 86 14 156/77 H 97 08/08/20 03:29 87 17 131/74 93 L 08/08/20 02:56 88 16 134/73 95 08/08/20 02:31 86 17 135/68 96 08/08/20 02:16 86 16 135/70 95 08/08/20 02:11 86 16 147/73 H 95 08/08/20 02:08 93 14 127/82 93 L 08/08/20 02:01 85 17 137/81 94 L 08/08/20 01:56 83 12 147/83 H 93 L 08/08/20 01:51 85 13 138/84 94 L 08/08/20 01:46 80 13 143/82 H 94 L 08/08/20 01:41 78 15 146/81 H 95 08/08/20 01:36 82 13 155/87 H 95 08/08/20 01:29 35.8 C L 85 20 121/69 97
[2020-08-08] MEDS ORDERED: Silver Nitrate Applicator Each TOP ONE (03:24)
[2020-08-08 04:43] VITALS: BP 129/79; PULSE 87
== END 2020-08-08 06:09 | disposition home or self-care (01) ==
LOC: JP.ED 01:26
DX: R04.0 Epistaxis (principal); R51.9 Headache, unspecified; I10 Essential (primary) hypertension; I25.10 Atherosclerotic heart disease of native coronary artery without angina pectoris; I25.2 Old myocardial infarction; E78.00 Pure hypercholesterolemia, unspecified; F17.210 Nicotine dependence, cigarettes, uncomplicated; Z95.5 Presence of coronary angioplasty implant and graft; Z88.8 Allergy status to other drugs, medicaments and biological substances; Z79.01 Long term (current) use of anticoagulants; Z79.899 Other long term (current) drug therapy
CPT/HCPCS: 30901; 36415; 80053; 85025; 85610; 86850; 86900; 86901; 99283-25

== ENCOUNTER 2021-04-20 18:56 | Emergency (ER) | payer MEDICARE ==
[2021-04-20] MEDS ORDERED: Sodium Chloride 0.9% 10 ML Syringe FLUSH PRN (18:59)
[2021-04-20] MEDS ORDERED: Sodium Chloride 0.9% 1,000 ML IV SCH (19:00)
[2021-04-20 19:10] VITALS: BP 171/66; PULSE 64
--- NOTE | 2021-04-20 21:08 | CRLCT ---
For Patients: As a result of the Century Cures Act, medical imaging exams and procedure reports are released immediately into your electronic medical record. You may view this report before your referring provider. If you have questions, please contact your health care provider. INDICATION: Acute left flank pain. History of renal stones. TECHNIQUE: CT abdomen and pelvis without contrast. COMPARISON: CT urogram dated 01/01/2020. FINDINGS: Lower chest: Stable 0.6 cm right lower lobe pulmonary nodule. No focal consolidation. Evaluation of solid organs is limited secondary to lack of IV contrast administration. Liver: Too small to characterize hypodense hepatic lesions, likely benign in the absence of a known malignancy. Gallbladder and bile ducts: Unremarkable. Pancreas: Unremarkable. Spleen: Unremarkable. Adrenal glands: Unremarkable. Kidneys: 0.5 cm calculus in the mid left ureter at the level of the iliac crest, resulting in mild left hydroureter. No significant left hydronephrosis, although there is some mild acute on chronic left perinephric stranding. No calculi identified within the right renal collecting system. Retroperitoneum: No lymphadenopathy Bowel and mesentery: Bowel is unobstructed. Scattered colonic diverticulosis, without evidence of acute diverticulitis. Appendix is normal. Bladder: Mild circumferential wall thickening of the urinary bladder, likely secondary to chronic bladder outlet obstruction. Reproductive organs: Significant hypertrophy of the median lobe of the prostate. Pelvic lymph nodes: No lymphadenopathy. Vessels: Atherosclerotic calcifications. Abdominal wall: No acute abdominal wall abnormality. Bones: Multilevel degenerative changes of the spine. No suspicious/aggressive focal osseous lesion. IMPRESSION: 1. Mildly obstructing 0.5 cm calculus in the mid left ureter at the level of the left iliac crest, resulting in mild left hydroureter. 2. No calculi identified within the right renal collecting system. 3. Significant hypertrophy of the median lobe of the prostate. Correlate with serum PSA. Please note that all CT scans at this facility use dose modulation, iterative reconstruction, and/or weight-based dosing when appropriate to reduce radiation dose to as low as reasonably achievable. Dictated by Kala Yuan MD @ 04/20/2021 9:07:[address] Kala Yuan @ Apr 20 2021 9:07PM
--- NOTE | 2021-04-20 21:30 | EDM.PDOC ---
ED HPI GENERAL MEDICAL PROBLEM - General Chief Complaint: Back Pain or Injury Stated Complaint: POSS. KIDNEY STONE Time Seen by Provider: 04/20/21 19:06 Source of Information: Reports: Patient History Limitations: Reports: No Limitations - History of Present Illness INITIAL COMMENTS - FREE TEXT/NARRATIVE: Ferny is a 70-year-old male presenting to the ED with acute onset of left- sided flank pain causing some diaphoresis and nausea. The patient has a history of nephrolithiasis that was diagnosed 3 years ago when he underwent a CT of the abdomen and pelvis. At that time he was seen by a urologist at [facility]. He has not had any difficulty with that until today. Patient was driving around in his car when he started to experience left upper flank pain. In the course of the day the pain started to descend and become more intense. The patient reports that he started to feel nauseous with it. Left Back Pain Score (Numeric/FACES): 3 - Related Data Allergies Allergy/AdvReac Type Severity Reaction Status Date / Time simvastatin Allergy Rash Verified 08/08/20 01:31 Home Meds: Home Meds Metoprolol Succinate [Toprol XL] 50 mg PO BEDTIME 11/24/16 [History] Rosuvastatin [Crestor] 20 mg PO BEDTIME 11/24/16 [History] Nitroglycerin [Nitrostat] 0.4 mg SL .Q5MIN PRN 04/12/17 [History] Warfarin [Coumadin] 5 mg PO DAILY 10 Days #10 tab 05/19/19 [Rx] Past Medical History HEENT History: Reports: Impaired Vision Cardiovascular History: Reports: CAD, High Cholesterol, Hypertension, [place], Stents Respiratory History: Reports: None Gastrointestinal History: Reports: Colon Polyp, Gastritis, GERD, PUD Genitourinary History: Reports: None Musculoskeletal History: Reports: Other (See Below) Other Musculoskeletal History: left hand finger fracture Neurological History: Reports: None Psychiatric History: Reports: None Endocrine/Metabolic History: Reports: None Hematologic History: Reports: None Immunologic History: Reports: None Oncologic (Cancer) History: Reports: None Dermatologic History: Reports: Psoriasis - Infectious Disease History Infectious Disease History: Reports: Chicken Pox, Measles, Mumps - Past Surgical History Head Surgeries/Procedures: Reports: None HEENT Surgical History: Reports: Tonsillectomy Cardiovascular Surgical History: Reports: Coronary Artery Stent, Percutaneous Transluminal Angioplasty, Vascular Surgery Respiratory Surgical History: Reports: None GI Surgical History: Reports: Colonoscopy, EGD, Polypectomy Endocrine Surgical History: Reports: None Neurological Surgical History: Reports: None Musculoskeletal Surgical History: Reports: None Oncologic Surgical History: Reports: None Dermatological Surgical History: Reports: None Social & Family History - Family History Family Medical History: No Pertinent Family History - Tobacco Use Tobacco Use Status *Q: Former Tobacco User Used Tobacco, but Quit: Yes Month/Year Tobacco Last Used: 11/2020 - Caffeine Use Caffeine Use: Reports: Coffee - Alcohol Use Number of Drinks Per Day: 2 - Recreational Drug Use Recreational Drug Use: No ED ROS GENERAL - Review of Systems Review Of Systems: See Below Constitutional: Reports: Diaphoresis HEENT: Reports: No Symptoms Respiratory: Reports: No Symptoms Cardiovascular: Reports: No Symptoms Endocrine: Reports: No Symptoms GI/Abdominal: Reports: Abdominal Pain, Nausea (Left upper quadrant) : Reports: Flank Pain (Left flank), Hematuria Musculoskeletal: Reports: No Symptoms Skin: Reports: No Symptoms Neurological: Reports: No Symptoms Psychiatric: Reports: No Symptoms Hematologic/Lymphatic: Reports: No Symptoms Immunologic: Reports: No Symptoms ED EXAM, RENAL/ - Physical Exam Exam: See Below Exam Limited By: No Limitations General Appearance: Alert, Anxious, Mild Distress Eye Exam: Bilateral Eye: EOMI, PERRL Throat/Mouth: Normal Inspection, Normal Lips, Normal Oropharynx, Normal Voice, No Airway Compromise Head: Atraumatic, Normocephalic Neck: Normal Inspection, Supple, Non-Tender, Full Range of Motion Respiratory/Chest: No Respiratory Distress, Lungs Clear, Normal Breath Sounds Cardiovascular: Normal Peripheral Pulses, Regular Rate, Rhythm, No Murmur GI/Abdominal: Normal Bowel Sounds, Soft, Non-Tender Back Exam: Normal Inspection, Full Range of Motion. No: CVA Tenderness (R), CVA Tenderness (L) Extremities: Normal Inspection, Normal Range of Motion, Normal Capillary Refill Neurological: Alert, Oriented, Normal Cognition, No Motor/Sensory Deficits Psychiatric: Normal Affect, Normal Mood, Anxious Skin Exam: Warm, Dry, Intact, Normal Color Lymphatic: No Adenopathy Course - Vital Signs Last Recorded V/S: Last Vital Signs Temp 35.7 C L 04/20/21 19:08 Pulse 64 04/20/21 19:08 Resp 16 04/20/21 19:08 BP 171/66 H 04/20/21 19:08 Pulse Ox 98 04/20/21 19:08 - Orders/Labs/Meds Orders: Active Orders 24 hr Category Date Time Status BASIC METABOLIC PANEL,BMP [CHEM] Stat Lab 04/20/21 22:26 Ordered Acetaminophen/HYDROcodone [[place]son 325-5 MG] Med 04/20/21 22:30 Once 1 tab PO ONETIME ONE Ondansetron [Zofran ODT] Med 04/20/21 22:30 Once 4 mg PO ONETIME ONE Sodium Chloride 0.9% [Normal Saline] 1,000 ml Med 04/20/21 19:00 Active IV ASDIRECTED Sodium Chloride 0.9% [Saline Flush] Med 04/20/21 18:59 Active 10 ml FLUSH ASDIRECTED PRN Saline Lock Insert [OM.PC] Routine Oth 04/20/21 18:59 Ordered Medication Orders Sodium Chloride (Normal Saline) 1,000 mls @ 999 mls/hr IV ASDIRECTED PRETTY Last Admin: 04/20/21 19:43 Dose: 999 mls/hr Documented by: JONAH Sodium Chloride (Sodium Chloride 0.9% 10 Ml Syringe) 10 ml FLUSH ASDIRECTED PRN PRN Reason: Keep Vein Open Last Admin: 04/20/21 19:41 Dose: 10 ml Documented by: JONAH Labs: Laboratory Tests 04/20/21 04/20/21 04/20/21 Range/Units 19:40 19:40 19:40 WBC 6.9 (4.5-11.0) K/uL RBC 3.81 L (4.30-5.90) M/uL Hgb 11.2 L (12.0-15.0) g/dL Hct 36.3 L (40.0-54.0) % MCV 95 (80-98) fL MCH 29 (27-31) pg MCHC 31 L (32-36) % Plt Count 242 (150-400) K/uL Neut % (Auto) 63.3 (36-66) % Lymph % (Auto) 19.7 L (24-44) % [place] % (Auto) 13.6 H (2-6) % Eos % (Auto) 3.0 (2-4) % Baso % (Auto) 0.4 (0-1) % Sodium 142 (140-148) mmol/L Potassium 4.1 (3.6-5.2) mmol/L Chloride 106 (100-108) mmol/L Carbon Dioxide 25 (21-32) mmol/L Anion Gap 11.3 (5.0-14.0) mmol/L BUN 19 H (7-18) mg/dL Creatinine 1.1 (0.8-1.3) mg/dL Est Cr Clr Drug Dosing 63.38 mL/min Estimated GFR (MDRD) > 60 (>60) Glucose 104 (74-106) mg/dL Calcium 8.6 (8.5-10.1) mg/dL Urine Color Yellow (YELLOW) Urine Appearance Slightly cloudy A (CLEAR) Urine pH 5.5 (5.0-8.0) Ur Specific [place] 1.025 (1.008-1.030) Urine Protein 30 H (NEGATIVE) mg/dL Urine Glucose (UA) Negative (NEGATIVE) mg/dL Urine Ketones Negative (NEGATIVE) mg/dL Urine Occult Blood Large H (NEGATIVE) Urine Nitrite Negative (NEGATIVE) Urine Bilirubin Negative (NEGATIVE) Urine Urobilinogen 0.2 (0.2-1.0) EU/dL Ur Leukocyte Esterase Negative (NEGATIVE) Urine RBC 30-40 H (0-5) Urine WBC Not seen (0-5) Ur Epithelial Cells Rare Amorphous Sediment Few Urine Bacteria Few Urine Mucus Few Meds: Medications Generic Name Dose Route Start Last Admin Trade Name Freq PRN Reason Stop Dose Admin Sodium Chloride 1,000 mls @ 999 mls/hr 04/20/21 19:00 04/20/21 19:43 Normal Saline IV 999 mls/hr ASDIRECTED PRETTY Administration Sodium Chloride 10 ml 04/20/21 18:59 04/20/21 19:41 Sodium Chloride 0.9% 10 Ml Syringe FLUSH 10 ml ASDIRECTED PRN Administration Keep Vein Open - Radiology Interpretation Free Text/Narrative:: I reviewed the CT of the abdomen and pelvis without contrast demonstrating a 0.5 cm ureterolithiasis in the mid ureter on the left just above the iliac crest. There is significant hydroureter and hydronephrosis. - Re-Assessments/Exams Free Text/Narrative Re-Assessment/Exam: 04/20/21 21:35 Ferny presents to the ED with left-sided flank pain and a history of 2 known nephrolithiasis on the left side documented [address] with the first 1 measuring 4 mm and the second 1 measuring 1 mm. The 4 mm stone was in the lower pole of the kidney and the 1 mm stone was in the upper pole of the kidney. Earlier today he started having left-sided flank pain and thought it was secondary to splitting wood, however, while driving around he started to notice increased pain when he hit any bumps in the road. This started to cause some mild diaphoresis and nausea without vomiting. Through the course of the day, the pain in the flank started to descend and become more intense prompting him to come in for evaluation. [place] any urinary symptoms including urgency, frequency or burning with urination. He previously had a history of hematuria for which he underwent a cystoscopy 3 years ago without any significant findings. He did report having some mild hematuria today. Labs were obtained today showing a normal CBC and urinalysis with the exception of large occult blood and 30-40 RBCs and no WBCs. His basic metabolic profile shows a creatinine of 2.1. The rest of the basic metabolic profile is a sodium of 142, potassium of 4.1, chloride of 106, CO2 of 25 with a glucose of 104 and a calcium of 8.6. GFR is calculated at greater than 60. 04/20/21 22:11 I discussed the case with Dr. Kuhn, urologist from [facility] who will likely take the patient to the operating room tomorrow to place a ureteral stent until the patient can be normalized on his Coumadin at which time they can proceed with a lithotripsy. I discussed the case with Dr. Rosa who accepts the patient in transfer for admission to the medical service in preparation for going to the OR tomorrow. The patient will go by private vehicle. Departure - Departure Time of Disposition: 22:35 Disposition: DC/Tfer to Acute Hospital 02 Clinical Impression: Calcium ureterolithiasis, Renal colic on left side, Hydroureter on left, Hydronephrosis of left kidney, Warfarin anticoagulation DVT (deep venous thrombosis) Qualifiers: DVT location: lower extremity Affected thrombotic vein of extremity: popliteal Chronicity: chronic Laterality: right Qualified Code(s): I82.531 - Chronic embolism and thrombosis of right popliteal vein - Discharge Information Referrals: Ofelia Frye MD [Primary Care Provider] - Forms: ED Department Discharge Sepsis Event Note (ED) - Evaluation Sepsis Screening Result: No Definite Risk - Focused Exam Vital Signs: Vital Signs Temp Pulse Resp BP Pulse Ox 04/20/21 19:08 35.7 C L 64 16 171/66 H 98 - My Orders Last 24 Hours: My Active Orders 04/20/21 18:59 Sodium Chloride 0.9% [Saline Flush] 10 ml FLUSH ASDIRECTED PRN Saline Lock Insert [OM.PC] Routine 04/20/21 19:00 Sodium Chloride 0.9% [Normal Saline] 1,000 ml IV ASDIRECTED 04/20/21 22:26 BASIC METABOLIC PANEL,BMP [CHEM] Stat 04/20/21 22:30 Acetaminophen/HYDROcodone [Anson 325-5 MG] 1 tab PO ONETIME ONE Ondansetron [Zofran ODT] 4 mg PO ONETIME ONE - Assessment/Plan Last 24 Hours: My Active Orders 04/20/21 18:59 Sodium Chloride 0.9% [Saline Flush] 10 ml FLUSH ASDIRECTED PRN Saline Lock Insert [OM.PC] Routine 04/20/21 19:00 Sodium Chloride 0.9% [Normal Saline] 1,000 ml IV ASDIRECTED 04/20/21 22:26 BASIC METABOLIC PANEL,BMP [CHEM] Stat 04/20/21 22:30 Acetaminophen/HYDROcodone [Anson 325-5 MG] 1 tab PO ONETIME ONE Ondansetron [Zofran ODT] 4 mg PO ONETIME ONE
[2021-04-20] MEDS ORDERED: Acetaminophen/HYDROcodone 325-5 MG Tab PO ONE (22:30)
[2021-04-20] MEDS ORDERED: Ondansetron 4 MG Tab.DIS PO ONE (22:30)
[2021-04-20] MEDS ORDERED: Ondansetron 4 MG Tab.DIS ONE (23:11)
[2021-04-20] MEDS ORDERED: Acetaminophen/HYDROcodone 325-5 MG Tab ONE (23:13)
== END 2021-04-20 23:54 ==
LOC: JP.ED 18:56
DX: N13.2 Hydronephrosis with renal and ureteral calculous obstruction (principal); I82.531 Chronic embolism and thrombosis of right popliteal vein; D64.9 Anemia, unspecified; I25.10 Atherosclerotic heart disease of native coronary artery without angina pectoris; E78.00 Pure hypercholesterolemia, unspecified; I10 Essential (primary) hypertension; I25.2 Old myocardial infarction; Z95.5 Presence of coronary angioplasty implant and graft; Z88.8 Allergy status to other drugs, medicaments and biological substances; Z79.01 Long term (current) use of anticoagulants; Z79.899 Other long term (current) drug therapy; Z87.891 Personal history of nicotine dependence
CPT/HCPCS: 36415; 74176; 80048; 81001; 85025; 99285; A9270; J7030

== ENCOUNTER 2021-04-21 21:02 | Emergency (ER) | payer MEDICARE ==
[2021-04-21 21:27] VITALS: BP 174/77; PULSE 63
--- NOTE | 2021-04-21 22:31 | EDM.PDOC ---
ED HPI GENERAL MEDICAL PROBLEM - General Chief Complaint: Genitourinary Problem Stated Complaint: URINARY STENT PLUGGED Time Seen by Provider: 04/21/21 22:31 Source of Information: Reports: Patient History Limitations: Reports: No Limitations - History of Present Illness INITIAL COMMENTS - FREE TEXT/NARRATIVE: pt arrived unable to void. He had a stent placed because he has a 7 mm ureteral stone. Urology did warn him that he might have difficulty voiding. Onset: Sudden Duration: Hour(s): Location: Reports: Abdomen, Other (pt had a uncomfortable abdoman because of bladder distention) Associated Symptoms: Reports: No Other Symptoms Pelvic Pain Score (Numeric/FACES): 8 - Related Data Allergies Allergy/AdvReac Type Severity Reaction Status Date / Time simvastatin Allergy Rash Verified 04/21/21 21:24 Home Meds: Home Meds Metoprolol Succinate [Toprol XL] 50 mg PO BEDTIME 11/24/16 [History] Rosuvastatin [Crestor] 20 mg PO BEDTIME 11/24/16 [History] Nitroglycerin [Nitrostat] 0.4 mg SL .Q5MIN PRN 04/12/17 [History] Warfarin [Coumadin] 5 mg PO DAILY 10 Days #10 tab 05/19/19 [Rx] Tamsulosin HCl [Flomax] 0.4 mg PO DAILY 04/21/21 [History] cephALEXin [Keflex] 500 mg PO Q8H 04/21/21 [History] oxyCODONE HCl/Acetaminophen [Endocet 5-325 Tablet] 1 each PO Q4HR PRN 04/21/21 [History] Past Medical History HEENT History: Reports: Impaired Vision Cardiovascular History: Reports: CAD, High Cholesterol, Hypertension, [place], Stents Respiratory History: Reports: None Gastrointestinal History: Reports: Colon Polyp, Gastritis, GERD, PUD Genitourinary History: Reports: None Musculoskeletal History: Reports: Other (See Below) Other Musculoskeletal History: left hand finger fracture Neurological History: Reports: None Psychiatric History: Reports: None Endocrine/Metabolic History: Reports: None Hematologic History: Reports: None Immunologic History: Reports: None Oncologic (Cancer) History: Reports: None Dermatologic History: Reports: Psoriasis - Infectious Disease History Infectious Disease History: Reports: Chicken Pox, Measles, Mumps - Past Surgical History Head Surgeries/Procedures: Reports: None HEENT Surgical History: Reports: Tonsillectomy Cardiovascular Surgical History: Reports: Coronary Artery Stent, Percutaneous Transluminal Angioplasty, Vascular Surgery Respiratory Surgical History: Reports: None GI Surgical History: Reports: Colonoscopy, EGD, Polypectomy Endocrine Surgical History: Reports: None Neurological Surgical History: Reports: None Musculoskeletal Surgical History: Reports: None Oncologic Surgical History: Reports: None Dermatological Surgical History: Reports: None Social & Family History - Family History Family Medical History: No Pertinent Family History - Tobacco Use Tobacco Use Status *Q: Former Tobacco User Used Tobacco, but Quit: Yes Month/Year Tobacco Last Used: 11/2020 - Caffeine Use Caffeine Use: Reports: Coffee - Recreational Drug Use Recreational Drug Use: No ED ROS GENERAL - Review of Systems Review Of Systems: See Below Constitutional: Reports: No Symptoms HEENT: Reports: No Symptoms Respiratory: Reports: No Symptoms Cardiovascular: Reports: No Symptoms Endocrine: Reports: No Symptoms : Reports: Urinary Retention ED EXAM, RENAL/ - Physical Exam Exam: See Below Text/Narrative:: pt arrived unable to void. He had over 100cc in his bladder. Exam Limited By: No Limitations General Appearance: Alert, Anxious, Moderate Distress Ears: Normal External Exam Nose: Normal Inspection Throat/Mouth: Normal Inspection Head: Atraumatic Neck: Normal Inspection Respiratory/Chest: No Respiratory Distress Cardiovascular: Regular Rate, Rhythm GI/Abdominal: Tender, Other ( bladder distention) (Male) Exam: Normal Inspection Rectal (Males) Exam: Deferred Back Exam: Normal Inspection Extremities: Normal Inspection Neurological: Alert, Oriented Course - Vital Signs Last Recorded V/S: Last Vital Signs Temp 36.3 C 04/21/21 21:20 Pulse 63 04/21/21 21:20 Resp 16 04/21/21 21:20 BP 174/77 H 04/21/21 21:20 Pulse Ox 99 04/21/21 21:20 - Orders/Labs/Meds Labs: Laboratory Tests 04/21/21 Range/Units 21:29 Urine Color Red A (YELLOW) Urine Appearance Cloudy A (CLEAR) Urine pH 6.5 (5.0-8.0) Ur Specific [place] 1.015 (1.008-1.030) Urine Protein >=300 H (NEGATIVE) mg/dL Urine Glucose (UA) 100 H (NEGATIVE) mg/dL Urine Ketones Trace H (NEGATIVE) mg/dL Urine Occult Blood Large H (NEGATIVE) Urine Nitrite Positive H (NEGATIVE) Urine Bilirubin Moderate H (NEGATIVE) Urine Urobilinogen 1.0 (0.2-1.0) EU/dL Ur Leukocyte Esterase Negative (NEGATIVE) Urine RBC Packed H (0-5) Urine WBC Not seen (0-5) Ur Epithelial Cells Not seen Amorphous Sediment Not seen Urine Bacteria Moderate Urine Mucus Not seen - Re-Assessments/Exams Free Text/Narrative Re-Assessment/Exam: 04/21/21 22:39 mitchell cath was placed without difficulty. He did end up with over 1000 cc out. 04/21/21 22:39 Departure - Departure Time of Disposition: 22:32 Disposition: Home, Self-Care 01 Condition: Fair Clinical Impression: Urinary retention, Mitchell catheter in place - Discharge Information Referrals: Ofelia Frye MD [Primary Care Provider] - Forms: ED Department Discharge Care Plan Goals: push fluids, leg bag, call urology and see how long the cath should be left in. Sepsis Event Note (ED) - Evaluation Sepsis Screening Result: No Definite Risk - Focused Exam Vital Signs: Vital Signs Temp Pulse Resp BP Pulse Ox 04/21/21 21:20 36.3 C 63 16 174/77 H 99
== END 2021-04-21 23:14 | disposition home or self-care (01) ==
LOC: JP.ED 21:02
DX: T83.091A Other mechanical complication of indwelling urethral catheter, initial encounter (principal); R33.9 Retention of urine, unspecified; I25.10 Atherosclerotic heart disease of native coronary artery without angina pectoris; I10 Essential (primary) hypertension; E78.00 Pure hypercholesterolemia, unspecified; I25.2 Old myocardial infarction; Z95.5 Presence of coronary angioplasty implant and graft; Z79.01 Long term (current) use of anticoagulants; Z79.899 Other long term (current) drug therapy; Z87.891 Personal history of nicotine dependence; Z88.8 Allergy status to other drugs, medicaments and biological substances
CPT/HCPCS: 51702; 81001; 99283-25

== ENCOUNTER 2024-09-29 07:02 | Day surgery (SDC) | payer MEDICARE ==
[2024-09-29] MEDS ORDERED: Propofol 200 MG/20 ML SDV ONE (07:17)
[2024-09-29] MEDS ORDERED: fentaNYL 100 MCG/2 ML SDV ONE (07:17)
[2024-09-29] MEDS: Lactated Ringers 1,000 ML IV SCH (07:51)
[2024-09-29 10:01] VITALS: BP 122/75; PULSE 56
== END 2024-09-29 10:13 | disposition home or self-care (01) ==
LOC: JP.SDS 07:02
PROVIDERS: ATTEND Surgery
DX: D64.9 Anemia, unspecified (principal); I25.10 Atherosclerotic heart disease of native coronary artery without angina pectoris; I10 Essential (primary) hypertension; K21.9 Gastro-esophageal reflux disease without esophagitis
CPT/HCPCS: 45378; J2704; J3010; J7120